=== PATIENT | male | born 1955 | race Caucasian/White ===

== ENCOUNTER 2018-01-31 13:20 | Emergency (ER) | payer MEDICARE ==
[2018-01-31 13:33] VITALS: BP 123/77; PULSE 87; TEMP 98.2; BMI 31.0
--- NOTE | 2018-01-31 15:31 | PDOC ---
History of Present Illness - General Chief Complaint: Cold Symptoms Stated Complaint: PAIN Time Seen by Provider: 01/31/18 14:27 History Source: Patient Exam Limitations: Clinical Condition - History of Present Illness Initial Comments: 01/31/18 15:27 Patient with h/o bladder CA present with complains of 2 weeks h/o persistent cough, nasal congestion, malaisen and intermittent chest tightness. patient report he saw his PCP 4 days ago who treated him for URI with cough medication and claritin but report symptoms persists. Denies fever, chills, N/V Timing/Duration: other (2 weeks) Past History - Past Medical History Home Medications: Ambulatory Orders Azithromycin [Zithromax 250mg Tablets -] 250 mg PO UTDICT #6 tab 01/31/18 Benzonatate [Tessalon Pearls -] 100 mg PO TID PRN #21 capsule 01/31/18 Ipratropium [place] 2 spray NS BID PRN #1 spray 01/31/18 Ketotifen Fumarate [Zaditor] 2 drop OP BID PRN #1 bottle 01/31/18 Methylprednisolone [Medrol Dose Ash] 4 mg PO ASDIR #21 tablet 01/31/18 Cancer: Yes (leukemia) COPD: No - Immunization History Immunization Up to Date: Yes - Suicide/Smoking/Psychosocial Hx Smoking History: Never smoked Number of Cigarettes Smoked Daily: 10 Information on smoking cessation initiated: No Hx Alcohol Use: No Drug/Substance Use Hx: No Substance Use Type: None Review of Systems - Review of Systems Able to Perform ROS?: Yes Is the patient limited [place] proficient: No Constitutional: Yes: Malaise. No: Chills, Fever, Night Sweats, Weakness HEENTM: Yes: Symptoms Reported, See HPI, Nose Congestion. No: Eye Pain, Blurred Vision, Tearing, Recent change in vision, Double Vision, Cataracts, Ear Pain, Ocular Prothesis, Ear Discharge, Nose Pain, Tinnitus, Nose Bleeding, Hearing Loss, Throat Pain, Throat Swelling, Mouth Pain, Dental Problems, Difficulty Swallowing, Mouth Swelling, Other Respiratory: Yes: See HPI, Cough. No: Orthopnea, Shortness of Breath, SOB with Exertion, SOB at Rest, Stridor, Wheezing, Productive cough, Hemoptysis Cardiac (ROS): Yes: Chest Tightness. No: Symptoms Reported, See HPI, Chest Pain , Edema, Irregular Heart Rate, Lightheadedness, Palpitations, Syncope, Other ABD/GI: No: Symptoms Reported, See HPI, Abdominal Distended, Abd. Pain w/ defecation, Blood Streaked Bowels, Constipated, Diarrhea, Difficulty Swallowing , Nausea, Poor Appetite, Poor Fluid Intake, Rectal Bleeding, Vomiting, Indigestion, Abdominal cramping, Tarry Stools, Other All Other Systems: Reviewed and Negative *Physical Exam - Vital Signs Last Vital Signs Temp Pulse Resp BP Pulse Ox 98.2 F 87 16 123/77 98 01/31/18 13:29 01/31/18 13:29 01/31/18 13:29 01/31/18 13:29 01/31/18 13:29 - Physical Exam General Appearance: Yes: Nourished, Appropriately Dressed. No: Apparent Distress HEENT: positive: KENDRA, Normal ENT Inspection, Normal Voice, TMs Normal, Pharynx Normal Neck: positive: Trachea midline, Normal Thyroid, Supple. negative: Tender Respiratory/Chest: positive: Lungs Clear, Normal Breath Sounds. negative: Chest Tender, Respiratory Distress, Accessory Muscle Use Cardiovascular: positive: Regular Rhythm, Regular Rate Gastrointestinal/Abdominal: positive: Flat, Soft. negative: Tender, Organomegaly Musculoskeletal: positive: Normal Inspection Extremity: positive: Normal Inspection Neurologic: positive: Fully Oriented, Alert, Normal Mood/Affect, Normal Response ED Treatment Course - RADIOLOGY Radiology Studies Ordered: Category Date Time Status CHEST PA & LAT [RAD] Stat Radiology 01/31/18 15:23 Ordered Medical Decision Making - Medical Decision Making 01/31/18 15:30 Patient with h/o bladder CA present with complains of 2 weeks h/o persistent cough, nasal congestion, malaise and intermittent chest tightness. clinical exam unremarkable. symptoms likely URI vs acute bronchitis. x-rays ordered. treat based on imaging results 01/31/18 16:20 chest x-rays shows no acute pathology. patient stable for discharge on outpatient treatment for bronchitis with azithromycin and tessalon perles for cough given immunocompromised with PCP follow-up *DC/Admit/Observation/Transfer Diagnosis at time of Disposition: Cough, Malaise URI (upper respiratory infection) Qualifiers: URI type: unspecified URI Qualified Code(s): J06.9 - Acute upper respiratory infection, unspecified - Discharge Dispostion Disposition: HOME Condition at time of disposition: Stable Decision to Admit order: No - Prescriptions Prescriptions: Azithromycin [Zithromax 250mg Tablets -] 250 mg PO UTDICT #6 tab Benzonatate [Tessalon Pearls -] 100 mg PO TID PRN #21 capsule PRN Reason: Cough Ipratropium [place] 2 spray NS BID PRN #1 spray PRN Reason: nasal congestion Ketotifen Fumarate [Zaditor] 2 drop OP BID PRN #1 bottle PRN Reason: eye irritation Methylprednisolone [Medrol Dose Ash] 4 mg PO ASDIR #21 tablet - Referrals Referrals: Yazan Chandler MD [Primary Care Provider] - - Patient Instructions Printed Discharge Instructions: Acute Bronchitis Additional Instructions: take medications as prescribed. increase fluid intake. follow-up with primary care - Post Discharge Activity
== END 2018-01-31 16:16 | disposition home or self-care (01) ==
LOC: JERFT 13:20
DX: J06.9 Acute upper respiratory infection, unspecified (principal); Z85.51 Personal history of malignant neoplasm of bladder; Z85.6 Personal history of leukemia
CPT/HCPCS: 71046-TC-FY; 99281-25